=== PATIENT | female | born 1960 | race African-American/Black ===

== ENCOUNTER 2025-07-14 05:56 | Day surgery (SDC) | payer BC ==
[2025-07-09 14:57] VITALS: BMI 39.2
[2025-07-14] MEDS ORDERED: PROPOFOL 20 ML ONE (06:52)
[2025-07-14] MEDS ORDERED: Lidocaine 1% PF 5 ML VIAL ONE (06:52)
== END 2025-07-14 09:16 | disposition home or self-care (01) ==
LOC: CSHSDC 05:56
PROVIDERS: ATTEND Surgery
PROC: 0DBL8ZX Excision of Transverse Colon, Via Natural or Artificial Opening Endoscopic, Diagnostic (ICD-10-PCS; principal; 2025-07-14)
DX: D12.3 Benign neoplasm of transverse colon (principal); I10 Essential (primary) hypertension; E78.2 Mixed hyperlipidemia; K57.30 Diverticulosis of large intestine without perforation or abscess without bleeding; K64.4 Residual hemorrhoidal skin tags; Z80.0 Family history of malignant neoplasm of digestive organs
CPT/HCPCS: 88305; J2250; J2704